=== PATIENT | male | born 1995 | race Caucasian/White ===

== ENCOUNTER 2018-01-15 17:14 | Emergency (ER) | payer OTHER ==
[2018-01-15 18:03] VITALS: BP 147/76
--- NOTE | 2018-01-15 18:18 | ED ---
Throat Pain/Nasal Congestion - HPI Summary HPI Summary: 22 yr old male with lump in his left posterior neck. Onset about 10 days ago. He does not feel ill. This is an isolated lump, not painful, no fever, no chills. He is a smoker. - History of Current Complaint Chief Complaint: UCGeneralIllness Time Seen by Provider: 01/15/18 17:59 - Allergies/Home Medications Allergies/Adverse Reactions: Allergies Allergy/AdvReac Type Severity Reaction Status Date / Time No Known Allergies Allergy Verified 01/15/18 18:03 Home Medications: Home Medications NK [No Home Medications Reported] 01/15/18 [History Confirmed 01/15/18] PMH/Surg Hx/FS Hx/Imm Hx Infectious Disease History: No Infectious Disease History: Denies: Traveled Outside the [place] in Last 30 Days - Family History Known Family History: Positive: None - Social History Alcohol Use: Weekly Substance Use Type: Reports: None Smoking Status (MU): Light Every Day Tobacco Smoker Review of Systems Constitutional: Negative Negative: Sore Throat, Ear Ache, Nasal Discharge All Other Systems Reviewed And Are Negative: Yes Physical Exam Triage Information Reviewed: Yes Vital Signs On Initial Exam: Initial Vitals Temp Pulse Resp BP Pulse Ox 99.4 F 90 16 147/76 99 01/15/18 17:59 01/15/18 17:59 01/15/18 17:59 01/15/18 17:59 01/15/18 17:59 Vital Signs Reviewed: Yes Appearance: Positive: Well-Appearing, No Pain Distress Skin: Positive: Warm Head/Face: Positive: Normal Head/Face Inspection Eyes: Positive: EOMI ENT: Positive: Normal ENT inspection, Pharynx normal, TMs normal, Uvula midline. Negative: Tonsillar swelling, Trismus, Muffled voice, Hoarse voice Neck: Positive: Enlarged Nodes @ - about 1 cm left side neck posterior cervical chain. Non tender. Not hard and firm. Mobile. Respiratory/Lung Sounds: Positive: Clear to Auscultation Cardiovascular: Positive: RRR. Negative: Murmur Abdomen Description: Positive: Nontender Musculoskeletal: Positive: Strength/ROM Intact Neurological: Positive: Sensory/Motor Intact, Alert, Oriented to Person Place, Time, CN Intact II-III Psychiatric: Positive: Normal - Marice Coma Scale Best Eye Response: 4 - Spontaneous Best Motor Response: 6 - Obeys Commands Best Verbal Response: 5 - Oriented Coma Scale Total: 15 Diagnostics - Vital Signs Vital Signs Temp Pulse Resp BP Pulse Ox 01/15/18 17:59 99.4 F 90 16 147/76 99 - Laboratory Lab Statement: Any lab studies that have been ordered have been reviewed, and results considered in the medical decision making process. EENT Course/Dx - Course Course Of Treatment: 22 yr old with likley benign lymph node left side neck. He will call his pmd for follow up. ENT referral given in case does not go away in the next few days. he was told to call ENT and primary care tomorrow morning for follow up for BP recheck and also for his lymph node left side of neck. He verbalized that he would do this. - Diagnoses Provider Diagnoses: Lymph node enlargement, Hypertension Discharge - Sign-Out/Discharge Documenting (check all that apply): Discharge/Admit/Transfer - Discharge Plan Condition: Good Disposition: HOME Patient Education Materials: Hypertension (ED), Lymphadenopathy (ED) Referrals: No Primary Care Phys,NOPCP [Primary Care Provider] - [facility] [Outside] - 2 Days Bruce Lamb MD [Medical Doctor] - 2 Days Additional Instructions: You need to follow up with primary care for your blood pressure this week. Also , you need to call primary care regarding the lymph node in your neck. If it is not gone in the next week you should go to the Emergency Room to be seen by ENT if you cannot get into the ENT office as an outpatient. - Billing Disposition and Condition Condition: GOOD Disposition: Home
== END 2018-01-15 18:17 | disposition home or self-care (01) ==
LOC: UCCORT 17:14
DX: R59.0 Localized enlarged lymph nodes (principal); I10 Essential (primary) hypertension; F17.200 Nicotine dependence, unspecified, uncomplicated
CPT/HCPCS: 99201; G0463